=== PATIENT | male | born 1950 | race Caucasian/White ===

== ENCOUNTER 2017-08-17 03:01 | Emergency (ER) | payer OTHER ==
[~2017-08-17] VITALS: Ht 175.3 cm; Wt 66.3 kg
[~2017-08-17 03:01] MED LIST: ASPEC81 PO; BENZ-88 PO; CYAN500T PO; DLN100 PO; DOCU100C31 PO; HLD5 PO; LPT40 PO; SODI1TAB PO; SODI325T9 PEG; ZNTT/150 PO
[2017-08-17 03:04] VITALS: TEMP 36.7; Ht 175.3 cm; Wt 66.3 kg
[2017-08-17] MEDS ORDERED: LORAZEPAM 1 MG TAB SL STA (03:13)
--- NOTE | 2017-08-17 03:16 | EMERGENCY ROOM VISIT NOTE ---
History Report prepared by Jackelyn: Marcus Davis Under the Supervision of: Dr. Evan Cuba M.D. First contact with patient: 03:08 Chief Complaint: HEAD INJURY (MINOR) Stated Complaint: SEIZURE--HIT HEAD History of Present Illness The patient is a 66 year old male with a history of seizures who presents to the Emergency Room with complaints of a seizure episode that occurred this morning. He states that he does not remember the episode. Per the corrections officers, the patient was found on the ground, and has a contusion on his left scalp from falling during the episode. The patient is supposed to take Dilantin , but he says that he has not been taking it. He notes that he was not using drugs he was not supposed to be taking. He denies any tongue bites, neck pain, shoulder pain, or knee pain. Source of History: patient, other (corrections officers) Onset: This morning Position: other (global - seizure) Quality: other (hx of seizures) Timing: other (episode) Associated Symptoms: No neck pain Note: Associated symptoms: Contusion on left scalp. Does not remember episode. Denies tongue bites, shoulder pain, knee pain. Review of Systems See HPI for pertinent positives & negatives. A total of 10 systems reviewed and were otherwise negative. Past Medical & Surgical Medical Problems: (1) Schizophrenia (2) Schizophrenia Family History Unobtainable Social History Smoking Status: Current Every Day Smoker Drug Use: none Marital Status: single Housing Status: other Occupation Status: unemployed Current/Historical Medications Scheduled Aspirin (Aspirin EC Low Dose), 81 MG PO QAM Atorvastatin (Atorvastatin Calcium), 80 MG PO QAM Benztropine Mesylate (Benztropine Mesylate), 2 MG PO DAILY Cyanocobalamin (Vitamin B-12), 500 MCG PO DAILY Docusate Sodium (Docusate Sodium), 1 CAP PO BID Haloperidol (Haloperidol), 5 MG PO BID Phenytoin Sodium (Dilantin), 1 CAP PO BID Ranitidine (Zantac), 150 MG PO BID Sodium Bicarbonate (Antacid) (Sodium Bicarbonate), 1 TAB PEG BID Sodium Chloride (Sodium Chloride), 1 GM PO BID Allergies Coded Allergies: No Known Allergies (Unverified , 06/20/17) Physical Exam Vital Signs Date Time Temp Pulse Resp B/P (MAP) Pulse Ox O2 Delivery O2 Flow Rate FiO2 08/17/17 04:29 67 16 121/90 100 08/17/17 03:04 36.7 73 18 151/83 100 Room Air Physical Exam GENERAL: Patient is well appearing and in no acute distress. He is in snf garb. HEENT: Large hematoma over left scalp, mucous membranes moist, no nasal congestion, no scleral icterus. NECK: No stridor, no adenopathy, no meningismus, trachea is midline. LUNGS: No dyspnea. Clear to auscultation and equal bilaterally. No wheeze, no rhonchi. HEART: Regular rate and rhythm. No murmurs, rubs, gallops appreciated. ABDOMEN: Soft, nontender, bowel sounds positive, no masses appreciated, no peritonitis. BACK: No midline tenderness, no CVA tenderness EXTREMITIES: Normal motion all extremities, no cyanosis, no edema. NEUROLOGIC: Alert and oriented, no acute motor or sensory deficits, no focal weakness, cranial nerves grossly intact. SKIN: No rash, no jaundice, no diaphoresis. Medical Decision & Procedures ER Provider Diagnostic Interpretation: CT HEAD: Non-Con: Stat Rad read: No ICH, mass effect of skull fracture Medications Administered Medications (Trade) Dose Ordered Sig/Caleb Route Start Time Stop Time Status Last Admin Dose Admin Lorazepam (Ativan Tab) 1 mg NOW STAT SL 08/17/17 03:13 08/17/17 03:14 DC 08/17/17 03:18 1 MG ED Course 0310: The patient was evaluated in room A11B. A complete history and physical exam was performed. Medical Decision 66 yr old male with long history of seizures who recently stopped taking his seizure meds due to side effects. Notes feeling well then slowly coming to in his snf cell with contusion left scalp. No other symptoms. Admits post- ictal period. Mild left headache. No neck pain, lacerations nor other injuries. Denies cp, sob, nor other symptoms and states he feels well. As large hematoma felt that CT necessary which was fortunately negative. Patient was given single dose ativan for further seizure prophylaxis. He is in no distress, feels well and no further symptoms. No evidence of encephalitis nor evidence of need for labs, ekgs, further imaging. I feel he most likely had a seizure resulting in head injury which patient agrees with. Patient stable and discharged with snf guards. Head Trauma GCS Score: 15 Medication Reconcilliation Current Medication List: was personally reviewed by me Blood Pressure Screening Patient's blood pressure: Elevated blood pressure Impression Primary Impression: Closed head injury Additional Impression: Seizure Scribe Attestation The scribe's documentation has been prepared under my direction and personally reviewed by me in its entirety. I confirm that the note above accurately reflects all work, treatment, procedures, and medical decision making performed by me. Departure Information Dispostion Home / Self-Care Referrals Twin BRAMBILA (PCP) Patient Instructions My [facility] Additional Instructions You will continue to have seizures, especially if you are not taking your medications. Follow up with Assisted provider for further discussion. Call 911/return if severe headache, worsening seizures, altered mental status or other concerns. CT Scan of head revealed no acute intracranial bleeding. Problem Qualifiers
[2017-08-17 04:29] VITALS: BP 121/90; PULSE 67; O2SAT 100
--- NOTE | 2017-08-17 06:45 | DIAGNOSTIC IMAGING REPORT ---
HEAD WITHOUT CONTRAST (CT) CT DOSE: 614.27 mGy.cm HISTORY: Trauma. Mental status change. left scalp contusion unwitnessed event TECHNIQUE: Multiaxial CT images of the head were performed without the use of intravenous contrast. A dose lowering technique was utilized adhering to the principles of ALARA. Comparison: 06/20/2017 Findings: The paranasal sinuses and mastoid air cells are clear. The calvarium and skull base are intact. The ventricles and sulci are within normal limits. There is no mass, hematoma, midline shift, or acute infarct. Mild chronic small vessel change of aging. No acute intracranial hemorrhage. Impression: No acute intracranial abnormality. Age-related chronic small vessel change. The above report was generated using voice recognition software. It may contain grammatical, syntax or spelling errors. Electronically signed by: Sudhakar Amador M.D. 08/17/2017 6:44 AM Dictated Date/Time: 08/17/2017 6:43 AM
== END 2017-08-17 04:30 | disposition home or self-care (01) ==
LOC: C.EDB 03:01 → C.EDA 04:30
DX: G40.909 Epilepsy, unspecified, not intractable, without status epilepticus (principal); S09.90XA Unspecified injury of head, initial encounter; W19.XXXA Unspecified fall, initial encounter; F20.9 Schizophrenia, unspecified; F17.200 Nicotine dependence, unspecified, uncomplicated; Z79.82 Long term (current) use of aspirin; Z79.899 Other long term (current) drug therapy

== ENCOUNTER 2017-08-22 12:30 | Emergency (ER) | payer OTHER ==
[~2017-08-22] VITALS: Ht 177.8 cm; Wt 68.2 kg
[~2017-08-22 12:30] MED LIST changes: -SODI325T9 PEG; +SODI325T9 PO
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
[2017-08-22 12:48] VITALS: TEMP 37; Ht 177.8 cm; Wt 68.2 kg
[2017-08-22] MEDS ORDERED: LEVE500T13 PO (12:57)
[2017-08-22] MEDS ORDERED: HALO20TA6 PO (12:57)
--- NOTE | 2017-08-22 13:11 | DIAGNOSTIC IMAGING REPORT ---
SINGLE VIEW CHEST CLINICAL HISTORY: Change in mental status. Weakness. FINDINGS: An AP, portable, upright chest radiograph is compared to study dated 06/20/2017 and correlated with chest CT dated 03/10/2014. The examination is degraded by portable technique and patient rotation. The cardiomediastinal silhouette is normal for projection. The lungs and pleural spaces are clear. No pneumothorax is seen. The bony thorax is grossly intact. IMPRESSION: No acute cardiopulmonary abnormality. Electronically signed by: Percy Rivas M.D. 08/22/2017 1:09 PM Dictated Date/Time: 08/22/2017 1:08 PM
[2017-08-22 13:25] LABS: BASO % 0.2 %; BASO ABS # 0.01 K/uL (0-0.2); EOS % 1.1 %; EOS ABS # 0.07 K/uL (0-0.5); HEMATOCRIT 39.2 % (42-52); HEMOGLOBIN 13.3 g/dL (14.0-18.0); IG# 0.01 K/uL (0.00-0.02); LYMPH ABS # 1.77 K/uL (1.2-3.4); MEAN CELL VOLUME 88.7 fL (80-100); MEAN CORPUSCULAR HEMOGLOBIN 30.1 pg (25-34); MEAN CORPUSCULAR HGB CONC 33.9 g/dl (32-36); MEAN PLATELET VOLUME 10.7 fL (7.4-10.4); MONO % 14.7 %; MONO ABS # 0.96 K/uL (0.11-0.59); NEUT % 56.8 %; NEUT ABS # 3.73 K/uL (1.4-6.5); PLATELET COUNT 191 K/uL (130-400); RED CELL DISTRIBUTION WIDTH CV 13.2 % (11.5-14.5); RED CELL DISTRIBUTION WIDTH SD 43.4 fL (36.4-46.3); WHITE BLOOD COUNT 6.55 K/uL (4.8-10.8)
[2017-08-22 13:35] LABS: PTT PATIENT 29.4 SECONDS (21.0-31.0)
[2017-08-22 13:44] LABS: ALBUMIN 4.3 gm/dl (3.4-5.0); ALT/SGPT 27 U/L (12-78); AST/SGOT 18 U/L (15-37); BLOOD UREA NITROGEN 12 mg/dl (7-18); CALCIUM 8.9 mg/dl (8.5-10.1); CARBON DIOXIDE 25 mmol/L (21-32); CREATININE 0.83 mg/dl (0.60-1.40); GLUCOSE 104 mg/dl (70-99); POTASSIUM 3.9 mmol/L (3.5-5.1); SODIUM 131 mmol/L (136-145)
--- NOTE | 2017-08-22 13:50 | DIAGNOSTIC IMAGING REPORT ---
CT HEAD WITHOUT CONTRAST (CT) CLINICAL HISTORY: Altered mental status. Weakness. COMPARISON STUDY: 08/17/2017 TECHNIQUE: Axial CT of the brain is performed from the vertex to the skull base. IV contrast was not administered for this examination. A dose lowering technique was utilized adhering to the principles of ALARA. CT DOSE: 1702.62 mGy.cm FINDINGS: No intra or extra-axial mass lesions are visualized. There is no CT evidence of acute cortical infarction. There is no evidence of midline shift. There is no acute hemorrhage. No calvarial fractures are visualized. There are patchy white matter hypodensities likely on a small vessel basis. There is no evidence of pathologic ventricular dilatation. There is no evidence of acute sinusitis IMPRESSION: No acute intracranial findings Electronically signed by: Jarred Arvizu M.D. 08/22/2017 1:49 PM Dictated Date/Time: 08/22/2017 1:48 PM
[2017-08-22 13:55] LABS: ALKALINE PHOSPHATASE 86 U/L (45-117); CKMB 2.6 ng/ml (0.5-3.6); TOTAL PROTEIN 7.4 gm/dl (6.4-8.2)
--- NOTE | 2017-08-22 13:59 | DIAGNOSTIC IMAGING REPORT ---
CERVICAL SPINE CT CT DOSE: HISTORY: Neck pain. fall TECHNIQUE: Multiaxial CT images of the cervical spine were performed and reformatted in the sagittal and coronal plane without the use of contrast. A dose lowering technique was utilized adhering to the principles of ALARA. COMPARISON: None. FINDINGS: No fractures. No subluxation. Prevertebral soft tissues and the C1-C2 interval are intact. No pneumothorax. Straightening of the cervical spine. Moderate disc space narrowing at C5-C6 and C6-C7. IMPRESSION: No fractures within the cervical spine. Electronically signed by: Erwin To M.D. 08/22/2017 1:58 PM Dictated Date/Time: 08/22/2017 1:48 PM
[2017-08-22] MEDS ORDERED: LEVETIRACETAM 500 MG TAB PO STA (16:54)
[2017-08-22] MEDS ORDERED: SODIUM CHLORIDE 0.9% 1000ML 1,000 ML IV STA (16:54)
[2017-08-22] MEDS ORDERED: PHENYTOIN SOD INJ 50 MG/ML 2 ML SYR IV STA (16:54)
[2017-08-22] MEDS ORDERED: PHENYTOIN IV INFUSION 1,000 MG in SODIUM CHLORIDE 0.9% 100ML 100 ML IV SCH (17:30)
[2017-08-22] MEDS ORDERED: PHENYTOIN SODIUM ER 100 MG CAP PO STA (17:49)
[2017-08-22 18:50] VITALS: BP 145/93; PULSE 64; O2SAT 97
== END 2017-08-22 19:05 ==
LOC: EDBD 12:30 → C.EDA 12:33
DX: R41.82 Altered mental status, unspecified (principal); Z91.14 Patient's other noncompliance with medication regimen; R56.9 Unspecified convulsions; F20.9 Schizophrenia, unspecified; F17.200 Nicotine dependence, unspecified, uncomplicated; Z79.82 Long term (current) use of aspirin